=== PATIENT | male | born 1930 | race Asian ===

== ENCOUNTER → 2016-11-10 | Outpatient (CLI) | payer MEDICARE, OTHER ==
[~2016-11-10] MED LIST: ALBUTEROL IH; ASPI-556 PO; AUGMENTIN PO; BENZ-26 PO; FINA5TAB41 PO; LOSA25TA21 PO; METF850T2 PO; SYMB8060 IH; TAMS0.4C32 PO
== END | disposition home or self-care (01) ==
LOC: RADPV 13:55
PROVIDERS: ATTEND Internal Medicine
DX: I51.7 Cardiomegaly (principal)
CPT/HCPCS: 71020

== ENCOUNTER → 2017-07-26 | Outpatient (CLI) | payer MEDICARE, OTHER ==
[~2017-07-26] MED LIST changes: -BENZ-26 PO; +BENZ-51 PO; +LEVO250 PO; +PRED20 PO
== END | disposition home or self-care (01) ==
LOC: RADPV 10:54
PROVIDERS: ATTEND Internal Medicine
DX: I70.0 Atherosclerosis of aorta (principal)
CPT/HCPCS: 71020

== ENCOUNTER 2017-07-29 23:12 | Emergency (ER) | payer MEDICARE, OTHER ==
[~2017-07-29] VITALS: Ht 165.1 cm; Wt 79.5 kg
[~2017-07-29 23:12] MED LIST changes: -LEVO250 PO; -PRED20 PO
[2017-07-29] MEDS ORDERED: LEVO250 PO (23:28)
[2017-07-29] MEDS ORDERED: PRED20 PO (23:28)
[2017-07-29 23:38] LABS: GLUCOSE,POINT OF CARE 99 MG/DL (70-110)
[2017-07-30] LABS: BASOPHILS # (AUTO) 0.03 K/uL (0.00-0.20); BASOPHILS % (AUTO) 0.3 % (0.0-2.0); EOSINOPHILS % (AUTO) 0.04 % (1.0-6.0); HEMATOCRIT 41.5 % (41-53); HEMOGLOBIN 13.5 g/dL (13.5-17.5); LYMPHOCYTES # (AUTO) 1.5 K/uL (1.0-4.8); LYMPHOCYTES % (AUTO) 15.3 % (22.0-44.0); MEAN CORPUSCULAR HEMOGLOBIN 29.4 pg (26.0-34.0); MEAN CORPUSCULAR HGB CONC 32.6 G/dL (31.0-37.0); MEAN CORPUSCULAR VOLUME 90 fL (80-100); MONOCYTES # (AUTO) 0.7 K/uL (0.1-1.0); MONOCYTES % (AUTO) 7.2 % (2.0-9.0); NEUTROPHILS # (AUTO) 7.6 K/uL (1.8-7.7); NEUTROPHILS % (AUTO) 77.2 % (40.0-70.0); PLATELET COUNT (AUTO) 197 K/uL (150-450); RED BLOOD CELL COUNT(AUTO) 4.59 MIL/uL (4.50-5.90); RED CELL DISTRIBUTION WIDTH 13.1 % (11.5-14.5); WHITE BLOOD COUNT (AUTO) 9.8 K/uL (4.5-11.0)
[2017-07-30 00:11] LABS: ANION GAP 8 mmol/L (8-16); CALCIUM, TOTAL 9.6 mg/dL (8.8-10.5); CARBON DIOXIDE 28 mmol/L (22-29); CHLORIDE 100 mmol/L (98-107); CREATININE 1.04 mg/dL (0.60-1.30); GLOMERULAR FILTR. RATE CALC > 60 mL/min (>60); POTASSIUM 4.2 mmol/L (3.5-5.1); SODIUM SERUM 136 mmol/L (136-145); UREA NITROGEN, BLOOD 16 mg/dL (7-18)
[2017-07-30 00:17] LABS: ALANINE AMINOTRANSFERASE 33 U/L (12-78); ALBUMIN 4.1 g/dL (3.4-5.0); ASPARTATE AMINOTRANSFERASE 21 U/L (15-37); BILIRUBIN,TOTAL 0.5 mg/dL (0.1-1.0); TOTAL PROTEIN, SERUM 8.4 g/dL (6.4-8.2)
[2017-07-30] MEDS ORDERED: ALBUTEROL SULFATE 2.5 MG/0.5 ML NEB SOLUTION NEB ONE (01:45)
[2017-07-30] MEDS ORDERED: 0.9% SODIUM CHLORIDE 5 ML NEB SOLUTION NEB ONE (02:03)
[2017-07-30] MEDS ORDERED: ALBUTEROL SULFATE HFA 90 MCG/PUFF 8 GM INHALER IH ONE (03:00)
[2017-07-30 03:30] VITALS: BP 132/72
== END 2017-07-30 05:29 | disposition home or self-care (01) ==
LOC: EMS 23:14
DX: J45.909 Unspecified asthma, uncomplicated (principal); J18.9 Pneumonia, unspecified organism; E11.9 Type 2 diabetes mellitus without complications; E78.00 Pure hypercholesterolemia, unspecified; I10 Essential (primary) hypertension; Z79.82 Long term (current) use of aspirin
CPT/HCPCS: 82962; 94640; 99285; J3535

== ENCOUNTER 2018-06-08 12:45 | Inpatient (IN) | payer MEDICARE, OTHER ==
[~2018-06-08] VITALS: Ht 165.1 cm; Wt 58.5 kg
[~2018-06-08 12:45] MED LIST changes: +ALBU8HFA IH; -ALBUTEROL IH; +ATOR20TA86 PO; -AUGMENTIN PO; -BENZ-51 PO; +DOCU250C91 PO; +HEPA500041 SQ; -LOSA25TA21 PO; +METF-961 PO; -METF850T2 PO; -TAMS0.4C32 PO
[2018-06-08 13:50] VITALS: BP 174/79
[2018-06-08 15:30] VITALS: BP 139/57
[2018-06-08] MEDS ORDERED: ACETAMINOPHEN 325 MG TABLET PO PRN (16:45)
[2018-06-08] MEDS ORDERED: DOCUSATE SODIUM 283 MG/5 ML MINI-ENEMA PR PRN (16:45)
[2018-06-08] MEDS ORDERED: ACETAMINOPHEN 500 MG TABLET PO PRN (17:15)
[2018-06-08] MEDS ORDERED: INSULIN LISPRO 100 UNITS/ML SQ PRN (17:30)
[2018-06-08] MEDS ORDERED: DEXTROSE 50%-WATER 25 GM/50 ML SYRINGE IVP PRN (17:30)
[2018-06-08 19:35] LABS: APPEARANCE,URINE CLEAR (CLEAR); BILIRUBIN,URINE NEGATIVE (NEGATIVE); GLUCOSE, URINE (UA) NEGATIVE (NEGATIVE); KETONES,URINE NEGATIVE (NEGATIVE); LEUKOCYTE ESTERASE ,URINE NEGATIVE (NEGATIVE); NITRATE,URINE NEGATIVE (NEGATIVE); OCCULT BLOOD,URINE NEGATIVE (NEGATIVE); PROTEIN,URINE NEGATIVE (NEGATIVE); UROBILINOGEN,URINE 0.2 mg/dL (<=1.0)
[2018-06-08 20:49] VITALS: BP 158/76
[2018-06-08] MEDS ORDERED: DOCUSATE SODIUM 100 MG CAPSULE PO SCH (21:00)
[2018-06-08] MEDS: DOCUSATE SODIUM 250 MG CAPSULE PO SCH (21:20)
[2018-06-08] MEDS: SENNA 187 MG TABLET PO SCH (21:20)
[2018-06-08] MEDS: HEPARIN SODIUM,PORCINE 5,000 UNITS/ML VIAL SQ SCH (21:20)
[2018-06-08 21:48] VITALS: BP 160/80
[2018-06-08 22:59] LABS: GLUCOMETER DEV NAME(LOC) 2WR 1C; GLUCOSE,POINT OF CARE 131 MG/DL (70-110)
[2018-06-08 22:59] LABS: GLUCOMETER DEV NAME(LOC) 2WR 2E; GLUCOSE,POINT OF CARE 115 MG/DL (70-110)
[2018-06-08] MEDS: 0.9% SODIUM CHLORIDE 10 ML SYRINGE IVP SCH (23:32)
[2018-06-09 00:04] VITALS: BP 146/67
[2018-06-09 06:25] LABS: GLUCOMETER DEV NAME(LOC) 2WR 1C; GLUCOSE,POINT OF CARE 94 MG/DL (70-110)
[2018-06-09 07:12] LABS: BASOPHILS % (AUTO) 3.4 % (0.0-2.0); HEMATOCRIT 37.9 % (41-53); HEMOGLOBIN 12.8 g/dL (13.5-17.5); LYMPHOCYTES # (AUTO) 1.3 K/uL (1.0-4.8); LYMPHOCYTES % (AUTO) 24.8 % (22.0-44.0); MEAN CORPUSCULAR HEMOGLOBIN 29.8 pg (26.0-34.0); MEAN CORPUSCULAR HGB CONC 33.8 G/dL (31.0-37.0); MEAN CORPUSCULAR VOLUME 88 fL (80-100); MONOCYTES # (AUTO) 0.6 K/uL (0.1-1.0); MONOCYTES % (AUTO) 11.3 % (2.0-9.0); NEUTROPHILS # (AUTO) 2.9 K/uL (1.8-7.7); NEUTROPHILS % (AUTO) 56.5 % (40.0-70.0); PLATELET COUNT (AUTO) 133 K/uL (150-450); RED BLOOD CELL COUNT(AUTO) 4.29 MIL/uL (4.50-5.90); RED CELL DISTRIBUTION WIDTH 15.7 % (11.5-14.5)
[2018-06-09 07:30] LABS: ALANINE AMINOTRANSFERASE 36 U/L (12-78); ALBUMIN 3.5 g/dL (3.4-5.0); ALKALINE PHOSPHATASE 106 U/L (46-116); ANION GAP 7 mmol/L (8-16); ASPARTATE AMINOTRANSFERASE 44 U/L (15-37); BILIRUBIN,TOTAL 0.8 mg/dL (0.1-1.0); CARBON DIOXIDE 30 mmol/L (22-29); CHLORIDE 104 mmol/L (98-107); CHOL/HDL RATIO 2.3 (4.2-7.3); CHOLESTEROL 105 mg/dL (131-200); CREATININE 0.99 mg/dL (0.60-1.30); GLOMERULAR FILTR. RATE CALC > 60 mL/min (>60); GLUCOSE,RANDOM 159 mg/dL (70-110); HDL CHOLESTEROL 45 mg/dL (40-60); LDL CHOL (CALC.) 44 mg/dL (0-130); POTASSIUM 3.5 mmol/L (3.5-5.1); SODIUM SERUM 141 mmol/L (136-145); TRIGLYCERIDES 79 mg/dL (15-150); UREA NITROGEN, BLOOD 9 mg/dL (7-18)
[2018-06-09 07:31] LABS: % IRON SATURATION 40.6 % (30-44); IRON, SERUM 128 mcg/dL (50-175); TOTAL IRON BINDING CAPACITY 315 mcg/dL (250-450)
[2018-06-09 07:55] VITALS: BP 152/67
[2018-06-09] MEDS: 0.9% SODIUM CHLORIDE 10 ML SYRINGE IVP SCH ×2 (08:00→08:59)
[2018-06-09] MEDS: DOCUSATE SODIUM 250 MG CAPSULE PO SCH ×2 (08:57→20:44)
[2018-06-09] MEDS: ATORVASTATIN CALCIUM 20 MG TABLET PO SCH (08:57)
[2018-06-09] MEDS: RAMIPRIL 5 MG CAPSULE PO SCH (08:57)
[2018-06-09] MEDS: MetFORMIN HCL 850 MG TABLET PO SCH ×2 (08:57→17:41)
[2018-06-09] MEDS: HEPARIN SODIUM,PORCINE 5,000 UNITS/ML VIAL SQ SCH ×2 (08:57→20:45)
[2018-06-09] MEDS: FINASTERIDE 5 MG TABLET PO SCH (08:57)
[2018-06-09] MEDS: ASPIRIN 325 MG TABLET PO SCH (08:57)
[2018-06-09 12:42] VITALS: BP 133/61
[2018-06-09 16:37] VITALS: BP 126/61
[2018-06-09 16:42] LABS: GLUCOMETER DEV NAME(LOC) 2WR 2E; GLUCOSE,POINT OF CARE 92 MG/DL (70-110)
[2018-06-09] MEDS ORDERED: CYANOCOBALAMIN 1,000 MCG/ML VIAL IM ONE (16:45)
[2018-06-09] MEDS: SENNA 187 MG TABLET PO SCH (20:44)
[2018-06-10 00:26] VITALS: BP 141/71
[2018-06-10 06:28] LABS: GLUCOMETER DEV NAME(LOC) 2WR 1C; GLUCOSE,POINT OF CARE 96 MG/DL (70-110)
[2018-06-10 07:00] VITALS: BP 130/59
[2018-06-10] MEDS: DOCUSATE SODIUM 250 MG CAPSULE PO SCH ×2 (10:05→20:21)
[2018-06-10] MEDS: RAMIPRIL 5 MG CAPSULE PO SCH (10:05)
[2018-06-10] MEDS: ATORVASTATIN CALCIUM 20 MG TABLET PO SCH (10:05)
[2018-06-10] MEDS: ASPIRIN 325 MG TABLET PO SCH (10:05)
[2018-06-10] MEDS: FINASTERIDE 5 MG TABLET PO SCH (10:05)
[2018-06-10] MEDS: HEPARIN SODIUM,PORCINE 5,000 UNITS/ML VIAL SQ SCH ×2 (10:05→20:21)
[2018-06-10] MEDS: MetFORMIN HCL 850 MG TABLET PO SCH ×2 (10:05→18:59)
[2018-06-10 15:23] VITALS: BP 144/73
[2018-06-10 17:34] LABS: GLUCOMETER DEV NAME(LOC) 2WR 2E; GLUCOSE,POINT OF CARE 98 MG/DL (70-110)
[2018-06-10] MEDS: BRIMONIDINE TARTRATE 0.1% 5 ML OPHTHALMIC SOLUTION OU SCH (20:21)
[2018-06-10] MEDS: DORZOLAMIDE/TIMOLOL 2-0.5% [22.3-6.8MG/ML] 10 ML OPHTHALMIC SOLUTION OU SCH (20:21)
[2018-06-10] MEDS: SENNA 187 MG TABLET PO SCH (20:21)
[2018-06-11] VITALS: BP 144/63
[2018-06-11 05:53] LABS: GLUCOMETER DEV NAME(LOC) 2WR 2E; GLUCOSE,POINT OF CARE 97 MG/DL (70-110)
[2018-06-11 07:34] VITALS: BP 131/57
[2018-06-11] MEDS: DOCUSATE SODIUM 250 MG CAPSULE PO SCH ×2 (07:59→20:23)
[2018-06-11] MEDS: BRIMONIDINE TARTRATE 0.1% 5 ML OPHTHALMIC SOLUTION OU SCH ×2 (07:59→20:24)
[2018-06-11] MEDS: FINASTERIDE 5 MG TABLET PO SCH (07:59)
[2018-06-11] MEDS: ATORVASTATIN CALCIUM 20 MG TABLET PO SCH (07:59)
[2018-06-11] MEDS: MetFORMIN HCL 850 MG TABLET PO SCH ×2 (07:59→17:22)
[2018-06-11] MEDS: ASPIRIN 325 MG TABLET PO SCH (07:59)
[2018-06-11] MEDS: RAMIPRIL 5 MG CAPSULE PO SCH (07:59)
[2018-06-11] MEDS: DORZOLAMIDE/TIMOLOL 2-0.5% [22.3-6.8MG/ML] 10 ML OPHTHALMIC SOLUTION OU SCH ×2 (07:59→20:24)
[2018-06-11] MEDS: HEPARIN SODIUM,PORCINE 5,000 UNITS/ML VIAL SQ SCH ×2 (08:00→20:23)
[2018-06-11 16:21] VITALS: BP 143/70
[2018-06-11 17:48] LABS: GLUCOMETER DEV NAME(LOC) 2WR 1C; GLUCOSE,POINT OF CARE 85 MG/DL (70-110)
[2018-06-11] MEDS: SENNA 187 MG TABLET PO SCH (20:23)
[2018-06-12] VITALS: BP 144/73
[2018-06-12 06:13] LABS: GLUCOMETER DEV NAME(LOC) 2WR 1C; GLUCOSE,POINT OF CARE 78 MG/DL (70-110)
[2018-06-12 08:00] VITALS: BP 143/61
[2018-06-12] MEDS: RAMIPRIL 5 MG CAPSULE PO SCH (08:02)
[2018-06-12] MEDS: DOCUSATE SODIUM 250 MG CAPSULE PO SCH ×2 (08:03→20:37)
[2018-06-12] MEDS: BRIMONIDINE TARTRATE 0.1% 5 ML OPHTHALMIC SOLUTION OU SCH ×2 (08:03→20:37)
[2018-06-12] MEDS: ASPIRIN 325 MG TABLET PO SCH (08:03)
[2018-06-12] MEDS: FINASTERIDE 5 MG TABLET PO SCH (08:03)
[2018-06-12] MEDS: MetFORMIN HCL 850 MG TABLET PO SCH ×2 (08:03→17:05)
[2018-06-12] MEDS: ATORVASTATIN CALCIUM 20 MG TABLET PO SCH (08:03)
[2018-06-12] MEDS: DORZOLAMIDE/TIMOLOL 2-0.5% [22.3-6.8MG/ML] 10 ML OPHTHALMIC SOLUTION OU SCH ×2 (08:03→20:37)
[2018-06-12] MEDS: HEPARIN SODIUM,PORCINE 5,000 UNITS/ML VIAL SQ SCH ×2 (08:03→20:37)
[2018-06-12 16:00] VITALS: BP 140/70
[2018-06-12] MEDS: SENNA 187 MG TABLET PO SCH (20:37)
[2018-06-12 20:53] LABS: GLUCOMETER DEV NAME(LOC) 2WR 1C; GLUCOSE,POINT OF CARE 107 MG/DL (70-110)
[2018-06-13 01:42] VITALS: BP 150/66
[2018-06-13 06:53] LABS: GLUCOMETER DEV NAME(LOC) 2WR 1C; GLUCOSE,POINT OF CARE 76 MG/DL (70-110)
[2018-06-13 08:00] VITALS: BP 147/64
[2018-06-13] MEDS: HEPARIN SODIUM,PORCINE 5,000 UNITS/ML VIAL SQ SCH ×2 (09:36→21:15)
[2018-06-13] MEDS: MetFORMIN HCL 850 MG TABLET PO SCH ×2 (09:36→16:32)
[2018-06-13] MEDS: ATORVASTATIN CALCIUM 20 MG TABLET PO SCH (09:36)
[2018-06-13] MEDS: BRIMONIDINE TARTRATE 0.1% 5 ML OPHTHALMIC SOLUTION OU SCH ×2 (09:37→21:14)
[2018-06-13] MEDS: DOCUSATE SODIUM 250 MG CAPSULE PO SCH ×2 (09:37→21:14)
[2018-06-13] MEDS: ASPIRIN 325 MG TABLET PO SCH (09:37)
[2018-06-13] MEDS: FINASTERIDE 5 MG TABLET PO SCH (09:37)
[2018-06-13] MEDS: DORZOLAMIDE/TIMOLOL 2-0.5% [22.3-6.8MG/ML] 10 ML OPHTHALMIC SOLUTION OU SCH ×2 (09:37→21:14)
[2018-06-13] MEDS: RAMIPRIL 5 MG CAPSULE PO SCH (09:37)
[2018-06-13 16:00] VITALS: BP 128/69
[2018-06-13] MEDS: SENNA 187 MG TABLET PO SCH (21:14)
[2018-06-13 22:23] LABS: GLUCOMETER DEV NAME(LOC) 2WR 1C; GLUCOSE,POINT OF CARE 100 MG/DL (70-110)
[2018-06-13] MEDS ORDERED: METF-445 PO (22:34)
[2018-06-13] MEDS ORDERED: COSO10OS OU (22:34)
[2018-06-13] MEDS ORDERED: BRIM15OS OU (22:34)
[2018-06-13] MEDS ORDERED: RAMI5CAP67 PO (22:34)
[2018-06-14 02:00] VITALS: BP 146/65
[2018-06-14 06:33] LABS: GLUCOMETER DEV NAME(LOC) 2WR 1C; GLUCOSE,POINT OF CARE 98 MG/DL (70-110)
[2018-06-14 08:19] VITALS: BP 155/63
[2018-06-14] MEDS: ATORVASTATIN CALCIUM 20 MG TABLET PO SCH (08:23)
[2018-06-14] MEDS: RAMIPRIL 5 MG CAPSULE PO SCH (08:24)
[2018-06-14] MEDS: ASPIRIN 325 MG TABLET PO SCH (08:24)
[2018-06-14] MEDS: MetFORMIN HCL 850 MG TABLET PO SCH ×2 (08:24→17:21)
[2018-06-14] MEDS: FINASTERIDE 5 MG TABLET PO SCH (08:24)
[2018-06-14] MEDS: HEPARIN SODIUM,PORCINE 5,000 UNITS/ML VIAL SQ SCH ×2 (08:25→21:19)
[2018-06-14] MEDS: DOCUSATE SODIUM 250 MG CAPSULE PO SCH ×2 (08:25→21:19)
[2018-06-14] MEDS: DORZOLAMIDE/TIMOLOL 2-0.5% [22.3-6.8MG/ML] 10 ML OPHTHALMIC SOLUTION OU SCH ×2 (08:25→21:20)
[2018-06-14] MEDS: BRIMONIDINE TARTRATE 0.1% 5 ML OPHTHALMIC SOLUTION OU SCH ×2 (08:26→21:20)
[2018-06-14 16:05] VITALS: BP 133/66
[2018-06-14] MEDS: SENNA 187 MG TABLET PO SCH (21:19)
[2018-06-15 01:00] VITALS: BP 121/58
[2018-06-15 06:18] LABS: GLUCOMETER DEV NAME(LOC) 2WR 1C; GLUCOSE,POINT OF CARE 85 MG/DL (70-110)
[2018-06-15 07:17] VITALS: BP 138/64
[2018-06-15] MEDS: MetFORMIN HCL 850 MG TABLET PO SCH ×2 (08:37→17:21)
[2018-06-15] MEDS: HEPARIN SODIUM,PORCINE 5,000 UNITS/ML VIAL SQ SCH ×2 (08:37→20:30)
[2018-06-15] MEDS: RAMIPRIL 5 MG CAPSULE PO SCH (08:38)
[2018-06-15] MEDS: FINASTERIDE 5 MG TABLET PO SCH (08:38)
[2018-06-15] MEDS: ATORVASTATIN CALCIUM 20 MG TABLET PO SCH (08:38)
[2018-06-15] MEDS: DOCUSATE SODIUM 250 MG CAPSULE PO SCH ×2 (08:38→20:29)
[2018-06-15] MEDS: ASPIRIN 325 MG TABLET PO SCH (08:38)
[2018-06-15] MEDS: BRIMONIDINE TARTRATE 0.1% 5 ML OPHTHALMIC SOLUTION OU SCH ×2 (08:39→20:29)
[2018-06-15] MEDS: DORZOLAMIDE/TIMOLOL 2-0.5% [22.3-6.8MG/ML] 10 ML OPHTHALMIC SOLUTION OU SCH ×2 (08:39→20:29)
[2018-06-15] MEDS ORDERED: *NON-FORMULARY MED [ENTER DRUG, DOSE, FREQ IN COMMENTS] CLINICAL ONE (13:45)
[2018-06-15 16:01] VITALS: BP 126/70
[2018-06-15] MEDS: FLUTICASONE/SALMETEROL 250 MCG-50 MCG/INH DISKUS INHALER [28] IH SCH (20:29)
[2018-06-15] MEDS: SENNA 187 MG TABLET PO SCH (20:29)
[2018-06-16 01:45] VITALS: BP 148/72
[2018-06-16 06:38] LABS: GLUCOMETER DEV NAME(LOC) 2WR 1C; GLUCOSE,POINT OF CARE 87 MG/DL (70-110)
[2018-06-16 08:01] VITALS: BP 152/69
[2018-06-16] MEDS: FINASTERIDE 5 MG TABLET PO SCH (08:23)
[2018-06-16] MEDS: MetFORMIN HCL 850 MG TABLET PO SCH ×2 (08:23→17:48)
[2018-06-16] MEDS: RAMIPRIL 5 MG CAPSULE PO SCH (08:24)
[2018-06-16] MEDS: DOCUSATE SODIUM 250 MG CAPSULE PO SCH ×2 (08:24→20:19)
[2018-06-16] MEDS: ASPIRIN 325 MG TABLET PO SCH (08:24)
[2018-06-16] MEDS: HEPARIN SODIUM,PORCINE 5,000 UNITS/ML VIAL SQ SCH ×2 (08:24→20:19)
[2018-06-16] MEDS: ATORVASTATIN CALCIUM 20 MG TABLET PO SCH (08:24)
[2018-06-16] MEDS: FLUTICASONE/SALMETEROL 250 MCG-50 MCG/INH DISKUS INHALER [28] IH SCH ×2 (08:25→20:20)
[2018-06-16] MEDS: BRIMONIDINE TARTRATE 0.1% 5 ML OPHTHALMIC SOLUTION OU SCH ×2 (08:25→20:20)
[2018-06-16] MEDS: DORZOLAMIDE/TIMOLOL 2-0.5% [22.3-6.8MG/ML] 10 ML OPHTHALMIC SOLUTION OU SCH ×2 (08:25→20:20)
[2018-06-16] MEDS: INCRUSE ELLIPTA 62.5MCG IH SCH (13:08)
[2018-06-16 17:41] VITALS: BP 121/59
[2018-06-16] MEDS: SENNA 187 MG TABLET PO SCH (20:19)
[2018-06-17 02:00] VITALS: BP 142/70
[2018-06-17] MEDS ORDERED: ADV250 IH (04:02)
[2018-06-17] MEDS ORDERED: ASPI-1213 PO (04:04)
[2018-06-17] MEDS ORDERED: ASPI-891 PO (04:10)
[2018-06-17 06:38] LABS: GLUCOMETER DEV NAME(LOC) 2WR 1C; GLUCOSE,POINT OF CARE 77 MG/DL (70-110)
[2018-06-17 07:58] VITALS: BP 131/71
[2018-06-17] MEDS: FINASTERIDE 5 MG TABLET PO SCH (08:25)
[2018-06-17] MEDS: DOCUSATE SODIUM 250 MG CAPSULE PO SCH (08:25)
[2018-06-17] MEDS: BRIMONIDINE TARTRATE 0.1% 5 ML OPHTHALMIC SOLUTION OU SCH ×2 (08:25→20:26)
[2018-06-17] MEDS: FLUTICASONE/SALMETEROL 250 MCG-50 MCG/INH DISKUS INHALER [28] IH SCH ×2 (08:25→20:26)
[2018-06-17] MEDS: ASPIRIN 325 MG TABLET PO SCH (08:25)
[2018-06-17] MEDS: ATORVASTATIN CALCIUM 20 MG TABLET PO SCH (08:25)
[2018-06-17] MEDS: MetFORMIN HCL 850 MG TABLET PO SCH ×2 (08:25→17:38)
[2018-06-17] MEDS: DORZOLAMIDE/TIMOLOL 2-0.5% [22.3-6.8MG/ML] 10 ML OPHTHALMIC SOLUTION OU SCH ×2 (08:25→20:26)
[2018-06-17] MEDS: HEPARIN SODIUM,PORCINE 5,000 UNITS/ML VIAL SQ SCH ×2 (08:26→20:25)
[2018-06-17] MEDS: RAMIPRIL 5 MG CAPSULE PO SCH (08:27)
[2018-06-17] MEDS: INCRUSE ELLIPTA 62.5MCG IH SCH (13:07)
[2018-06-17 16:01] VITALS: BP 135/60
[2018-06-17] MEDS: SENNA 187 MG TABLET PO SCH (20:25)
[2018-06-18 00:01] VITALS: BP 144/66
[2018-06-18 06:28] LABS: GLUCOMETER DEV NAME(LOC) 2WR 1C; GLUCOSE,POINT OF CARE 80 MG/DL (70-110)
[2018-06-18] MEDS: DOCUSATE SODIUM 250 MG CAPSULE PO SCH (08:27)
[2018-06-18] MEDS: ASPIRIN 325 MG TABLET PO SCH (08:27)
[2018-06-18] MEDS: FINASTERIDE 5 MG TABLET PO SCH (08:27)
[2018-06-18] MEDS: BRIMONIDINE TARTRATE 0.1% 5 ML OPHTHALMIC SOLUTION OU SCH ×2 (08:28→20:25)
[2018-06-18] MEDS: FLUTICASONE/SALMETEROL 250 MCG-50 MCG/INH DISKUS INHALER [28] IH SCH ×2 (08:28→20:24)
[2018-06-18] MEDS: HEPARIN SODIUM,PORCINE 5,000 UNITS/ML VIAL SQ SCH ×2 (08:28→20:27)
[2018-06-18] MEDS: ATORVASTATIN CALCIUM 20 MG TABLET PO SCH (08:28)
[2018-06-18] MEDS: DORZOLAMIDE/TIMOLOL 2-0.5% [22.3-6.8MG/ML] 10 ML OPHTHALMIC SOLUTION OU SCH ×2 (08:28→20:25)
[2018-06-18] MEDS: MetFORMIN HCL 850 MG TABLET PO SCH ×2 (08:29→17:45)
[2018-06-18] MEDS: RAMIPRIL 5 MG CAPSULE PO SCH (09:00)
[2018-06-18 09:36] VITALS: BP 140/57
[2018-06-18] MEDS: INCRUSE ELLIPTA 62.5MCG IH SCH (15:34)
[2018-06-18 16:00] VITALS: BP 145/61
[2018-06-18] MEDS: SENNA 187 MG TABLET PO SCH (20:27)
[2018-06-19 01:32] VITALS: BP 133/59
[2018-06-19 06:18] LABS: GLUCOMETER DEV NAME(LOC) 2WR 1C; GLUCOSE,POINT OF CARE 96 MG/DL (70-110)
[2018-06-19 07:20] VITALS: BP 122/59
[2018-06-19] MEDS: ASPIRIN 325 MG TABLET PO SCH (07:52)
[2018-06-19] MEDS: MetFORMIN HCL 850 MG TABLET PO SCH ×2 (07:52→17:41)
[2018-06-19] MEDS: FINASTERIDE 5 MG TABLET PO SCH (07:52)
[2018-06-19] MEDS: RAMIPRIL 5 MG CAPSULE PO SCH (07:52)
[2018-06-19] MEDS: DOCUSATE SODIUM 250 MG CAPSULE PO SCH (07:52)
[2018-06-19] MEDS: ATORVASTATIN CALCIUM 20 MG TABLET PO SCH (07:52)
[2018-06-19] MEDS: DORZOLAMIDE/TIMOLOL 2-0.5% [22.3-6.8MG/ML] 10 ML OPHTHALMIC SOLUTION OU SCH ×2 (07:53→20:42)
[2018-06-19] MEDS: FLUTICASONE/SALMETEROL 250 MCG-50 MCG/INH DISKUS INHALER [28] IH SCH ×2 (07:53→20:41)
[2018-06-19] MEDS: HEPARIN SODIUM,PORCINE 5,000 UNITS/ML VIAL SQ SCH ×2 (07:53→20:45)
[2018-06-19] MEDS: BRIMONIDINE TARTRATE 0.1% 5 ML OPHTHALMIC SOLUTION OU SCH ×2 (07:53→20:41)
[2018-06-19] MEDS: INCRUSE ELLIPTA 62.5MCG IH SCH (12:33)
[2018-06-19 15:29] VITALS: BP 131/63
[2018-06-19] MEDS: SENNA 187 MG TABLET PO SCH (20:42)
[2018-06-20 01:00] VITALS: BP 150/69
[2018-06-20 05:58] LABS: GLUCOMETER DEV NAME(LOC) 2WR 2E; GLUCOSE,POINT OF CARE 88 MG/DL (70-110)
[2018-06-20 08:00] VITALS: BP 144/65
[2018-06-20] MEDS: ATORVASTATIN CALCIUM 20 MG TABLET PO SCH (08:04)
[2018-06-20] MEDS: ASPIRIN 325 MG TABLET PO SCH (08:04)
[2018-06-20] MEDS: RAMIPRIL 5 MG CAPSULE PO SCH (08:04)
[2018-06-20] MEDS: DOCUSATE SODIUM 250 MG CAPSULE PO SCH (08:04)
[2018-06-20] MEDS: FINASTERIDE 5 MG TABLET PO SCH (08:04)
[2018-06-20] MEDS: DORZOLAMIDE/TIMOLOL 2-0.5% [22.3-6.8MG/ML] 10 ML OPHTHALMIC SOLUTION OU SCH ×2 (08:05→21:10)
[2018-06-20] MEDS: FLUTICASONE/SALMETEROL 250 MCG-50 MCG/INH DISKUS INHALER [28] IH SCH ×2 (08:05→21:10)
[2018-06-20] MEDS: BRIMONIDINE TARTRATE 0.1% 5 ML OPHTHALMIC SOLUTION OU SCH ×2 (08:05→21:10)
[2018-06-20] MEDS: MetFORMIN HCL 850 MG TABLET PO SCH ×2 (08:06→17:31)
[2018-06-20] MEDS: HEPARIN SODIUM,PORCINE 5,000 UNITS/ML VIAL SQ SCH ×2 (08:06→21:09)
[2018-06-20] MEDS: INCRUSE ELLIPTA 62.5MCG IH SCH (14:22)
[2018-06-20 15:30] VITALS: BP 135/54
[2018-06-20] MEDS ORDERED: SODIUM CHLORIDE 0.9% 100 ML ONE (20:35)
[2018-06-20] MEDS: SENNA 187 MG TABLET PO SCH (21:09)
[2018-06-20] MEDS ORDERED: UMEC62.5 IH (22:35)
[2018-06-21 01:00] VITALS: BP 140/68
[2018-06-21 06:49] LABS: GLUCOMETER DEV NAME(LOC) 2WR 2E; GLUCOSE,POINT OF CARE 92 MG/DL (70-110)
[2018-06-21 07:45] VITALS: BP 141/63
[2018-06-21] MEDS: ASPIRIN 325 MG TABLET PO SCH (09:23)
[2018-06-21] MEDS: HEPARIN SODIUM,PORCINE 5,000 UNITS/ML VIAL SQ SCH (09:23)
[2018-06-21] MEDS: ATORVASTATIN CALCIUM 20 MG TABLET PO SCH (09:23)
[2018-06-21] MEDS: FINASTERIDE 5 MG TABLET PO SCH (09:23)
[2018-06-21] MEDS: DOCUSATE SODIUM 250 MG CAPSULE PO SCH (09:24)
[2018-06-21] MEDS: RAMIPRIL 5 MG CAPSULE PO SCH (09:24)
[2018-06-21] MEDS: MetFORMIN HCL 850 MG TABLET PO SCH (09:24)
[2018-06-21] MEDS: BRIMONIDINE TARTRATE 0.1% 5 ML OPHTHALMIC SOLUTION OU SCH (09:24)
[2018-06-21] MEDS: FLUTICASONE/SALMETEROL 250 MCG-50 MCG/INH DISKUS INHALER [28] IH SCH (09:25)
[2018-06-21] MEDS: DORZOLAMIDE/TIMOLOL 2-0.5% [22.3-6.8MG/ML] 10 ML OPHTHALMIC SOLUTION OU SCH (09:25)
== END 2018-06-21 11:30 | disposition home health service (06) | DRG 65 ==
LOC: 2WR 12:45
PROVIDERS: ADMIT Physical Medicine & Rehabilitation; ATTEND Physical Medicine & Rehabilitation
DX: I63.9 Cerebral infarction, unspecified (principal); I69.354 Hemiplegia and hemiparesis following cerebral infarction affecting left non-dominant side; D64.9 Anemia, unspecified; E11.9 Type 2 diabetes mellitus without complications; H40.9 Unspecified glaucoma; E78.5 Hyperlipidemia, unspecified; I10 Essential (primary) hypertension; K59.00 Constipation, unspecified; N31.9 Neuromuscular dysfunction of bladder, unspecified; N40.0 Benign prostatic hyperplasia without lower urinary tract symptoms; Z82.49 Family history of ischemic heart disease and other diseases of the circulatory system; Z83.3 Family history of diabetes mellitus; Z80.6 Family history of leukemia; Z79.899 Other long term (current) drug therapy
CPT/HCPCS: 82607; 82746; 83036; 83540; 83550; 85045; 86340; 87081; 97110; 97112; 97116; 97150; 97162; 97167; 97530; 97535; 99366; J1644; J3420; J3535; J7050

== ENCOUNTER 2018-08-23 13:49 | Inpatient (IN) | payer MEDICARE, OTHER ==
[~2018-08-23] VITALS: Ht 165.1 cm; Wt 62.0 kg
[~2018-08-23 13:49] MED LIST changes: +ADV250 IH; -ALBU8HFA IH; -ASPI-556 PO; +ASPI-891 PO; +BRIM15OS OU; +COSO10OS OU; -HEPA500041 SQ; +METF-445 PO; -METF-961 PO; +RAMI5CAP67 PO; -SYMB8060 IH; +UMEC62.5 IH
[2018-08-23 14:15] LABS: GLUCOSE,POINT OF CARE 86 MG/DL (70-110)
[2018-08-23 14:55] LABS: BASOPHILS % (AUTO) 1.1 % (0.0-2.0); EOSINOPHILS % (AUTO) 1.7 % (1.0-6.0); HEMATOCRIT 40.8 % (41-53); HEMOGLOBIN 13.2 g/dL (13.5-17.5); LYMPHOCYTES # (AUTO) 1.1 K/uL (1.0-4.8); LYMPHOCYTES % (AUTO) 8.8 % (22.0-44.0); MEAN CORPUSCULAR HEMOGLOBIN 29.2 pg (26.0-34.0); MEAN CORPUSCULAR HGB CONC 32.4 G/dL (31.0-37.0); MEAN CORPUSCULAR VOLUME 90 fL (80-100); MONOCYTES % (AUTO) 7.5 % (2.0-9.0); NEUTROPHILS # (AUTO) 10.4 K/uL (1.8-7.7); NEUTROPHILS % (AUTO) 80.9 % (40.0-70.0); PLATELET COUNT (AUTO) 190 K/uL (150-450); RED BLOOD CELL COUNT(AUTO) 4.54 MIL/uL (4.50-5.90); RED CELL DISTRIBUTION WIDTH 14.7 % (11.5-14.5)
[2018-08-23 15:12] LABS: ALANINE AMINOTRANSFERASE 21 U/L (12-78); ALBUMIN 3.9 g/dL (3.4-5.0); ALKALINE PHOSPHATASE 84 U/L (46-116); ANION GAP 10 mmol/L (8-16); ASPARTATE AMINOTRANSFERASE 14 U/L (15-37); BILIRUBIN,TOTAL 0.6 mg/dL (0.1-1.0); CALCIUM, TOTAL 9.4 mg/dL (8.8-10.5); CARBON DIOXIDE 27 mmol/L (22-29); CHLORIDE 100 mmol/L (98-107); CREATININE 0.83 mg/dL (0.60-1.30); GLUCOSE,RANDOM 102 mg/dL (70-110); LIPASE 166 U/L (73-393); POTASSIUM 4.3 mmol/L (3.5-5.1); SODIUM SERUM 137 mmol/L (136-145); TOTAL PROTEIN, SERUM 7.6 g/dL (6.4-8.2); UREA NITROGEN, BLOOD 17 mg/dL (7-18)
[2018-08-23 15:13] LABS: GLOMERULAR FILTR. RATE CALC > 60 mL/min (>60)
[2018-08-23] MEDS ORDERED: SODIUM CHLORIDE 0.9% 100 ML ONE (19:26)
[2018-08-23] MEDS ORDERED: IOVERSOL 320 MG/ML 100 ML VIAL ONE (19:26)
[2018-08-23 21:14] LABS: APPEARANCE,URINE CLEAR (CLEAR); BILIRUBIN,URINE NEGATIVE (NEGATIVE); GLUCOSE, URINE (UA) NEGATIVE (NEGATIVE); KETONES,URINE NEGATIVE (NEGATIVE); LEUKOCYTE ESTERASE ,URINE NEGATIVE (NEGATIVE); NITRATE,URINE NEGATIVE (NEGATIVE); OCCULT BLOOD,URINE NEGATIVE (NEGATIVE); PROTEIN,URINE NEGATIVE (NEGATIVE)
[2018-08-23] MEDS ORDERED: PANTOPRAZOLE SODIUM 40 MG/VIAL IVP ONE (21:15)
[2018-08-23] MEDS ORDERED: ONDANSETRON HCL 4 MG/2 ML VIAL IVP PRN (21:30)
[2018-08-23] MEDS ORDERED: 0.9% SODIUM CHLORIDE 10 ML SYRINGE IVP PRN (21:30)
[2018-08-23] MEDS ORDERED: ACETAMINOPHEN 325 MG TABLET PO PRN (21:30)
[2018-08-23] MEDS: PANTOPRAZOLE SODIUM 80 MG in SODIUM CHLORIDE 0.9% 100 ML IV SCH (21:35)
[2018-08-23] MEDS ORDERED: ADV250 IH (21:50)
[2018-08-24] VITALS (7 sets, daily range): BP systolic 133–166; BP diastolic 63–89
[2018-08-24 06:39] LABS: EOSINOPHILS % (AUTO) 2.5 % (1.0-6.0); HEMATOCRIT 34.9 % (41-53); HEMOGLOBIN 11.6 g/dL (13.5-17.5); LYMPHOCYTES # (AUTO) 1.7 K/uL (1.0-4.8); LYMPHOCYTES % (AUTO) 22.3 % (22.0-44.0); MEAN CORPUSCULAR HEMOGLOBIN 29.8 pg (26.0-34.0); MEAN CORPUSCULAR HGB CONC 33.4 G/dL (31.0-37.0); MEAN CORPUSCULAR VOLUME 89 fL (80-100); MONOCYTES # (AUTO) 0.8 K/uL (0.1-1.0); MONOCYTES % (AUTO) 10.2 % (2.0-9.0); NEUTROPHILS # (AUTO) 4.8 K/uL (1.8-7.7); PLATELET COUNT (AUTO) 163 K/uL (150-450); RED BLOOD CELL COUNT(AUTO) 3.91 MIL/uL (4.50-5.90); RED CELL DISTRIBUTION WIDTH 14.4 % (11.5-14.5)
[2018-08-24 07:08] LABS: ALANINE AMINOTRANSFERASE 17 U/L (12-78); ALBUMIN 3.2 g/dL (3.4-5.0); ALKALINE PHOSPHATASE 67 U/L (46-116); ANION GAP 7 mmol/L (8-16); ASPARTATE AMINOTRANSFERASE 15 U/L (15-37); BILIRUBIN,TOTAL 0.8 mg/dL (0.1-1.0); CALCIUM, TOTAL 8.8 mg/dL (8.8-10.5); CARBON DIOXIDE 29 mmol/L (22-29); CHLORIDE 105 mmol/L (98-107); CREATININE 0.82 mg/dL (0.60-1.30); GLUCOSE,RANDOM 86 mg/dL (70-110); POTASSIUM 3.8 mmol/L (3.5-5.1); SODIUM SERUM 141 mmol/L (136-145); TOTAL PROTEIN, SERUM 6.1 g/dL (6.4-8.2); UREA NITROGEN, BLOOD 16 mg/dL (7-18)
[2018-08-24 07:09] LABS: GLOMERULAR FILTR. RATE CALC > 60 mL/min (>60)
[2018-08-24] MEDS: PANTOPRAZOLE SODIUM 80 MG in SODIUM CHLORIDE 0.9% 100 ML IV SCH ×2 (08:24→19:04)
[2018-08-24 09:04] LABS: GLUCOMETER DEV NAME(LOC) 5S.1; GLUCOSE,POINT OF CARE 79 MG/DL (70-110)
[2018-08-24] MEDS ORDERED: BISACODYL 10 MG RECTAL RECTAL SUPPOSITORY PR PRN (10:30)
[2018-08-24] MEDS: DEXTROSE 5%-0.45% SODIUM CHL 1,000 ML IV SCH ×2 (10:58→23:09)
[2018-08-24] MEDS ORDERED: SODIUM CHLORIDE 0.9% 1,000 ML IV ONE ×2 (12:09→13:00)
[2018-08-24 12:46] LABS: GLUCOMETER DEV NAME(LOC) 5S.2; GLUCOSE,POINT OF CARE 77 MG/DL (70-110)
[2018-08-24] MEDS: POLYETHYLENE GLYCOL 3350 17 GM PACKET PO SCH ×2 (15:35→21:02)
[2018-08-25] VITALS (12 sets, daily range): BP systolic 127–166; BP diastolic 60–85
[2018-08-25] MEDS: PANTOPRAZOLE SODIUM 80 MG in SODIUM CHLORIDE 0.9% 100 ML IV SCH (04:34)
[2018-08-25] MEDS ORDERED: 0.9% SODIUM CHLORIDE 10 ML SYRINGE IVP PRN (08:30)
[2018-08-25] MEDS ORDERED: IPRATROPIUM BROMIDE 0.5 MG/2.5 ML NEB SOLUTION NEB PRN (08:30)
[2018-08-25] MEDS ORDERED: ONDANSETRON HCL 4 MG/2 ML VIAL IVP PRN (08:30)
[2018-08-25] MEDS ORDERED: ACETAMINOPHEN 325 MG TABLET PO PRN (08:30)
[2018-08-25] MEDS ORDERED: ALBUTEROL SULFATE 2.5 MG/0.5 ML NEB SOLUTION NEB PRN (08:30)
[2018-08-25] MEDS ORDERED: LACTULOSE 20 GM/30 ML SOLUTION UDCUP PO ONE (08:30)
[2018-08-25] MEDS ORDERED: ZOLPIDEM TARTRATE 5 MG TABLET PO PRN (08:30)
[2018-08-25] MEDS: POLYETHYLENE GLYCOL 3350 17 GM PACKET PO SCH (08:58)
[2018-08-25 09:00] LABS: EOSINOPHILS % (AUTO) 3.4 % (1.0-6.0); HEMATOCRIT 37.9 % (41-53); HEMOGLOBIN 12.6 g/dL (13.5-17.5); LYMPHOCYTES # (AUTO) 1.7 K/uL (1.0-4.8); LYMPHOCYTES % (AUTO) 20.2 % (22.0-44.0); MEAN CORPUSCULAR HEMOGLOBIN 29.8 pg (26.0-34.0); MEAN CORPUSCULAR HGB CONC 33.3 G/dL (31.0-37.0); MEAN CORPUSCULAR VOLUME 89 fL (80-100); MONOCYTES # (AUTO) 0.8 K/uL (0.1-1.0); MONOCYTES % (AUTO) 9.6 % (2.0-9.0); NEUTROPHILS # (AUTO) 5.6 K/uL (1.8-7.7); NEUTROPHILS % (AUTO) 65.8 % (40.0-70.0); PLATELET COUNT (AUTO) 165 K/uL (150-450); RED BLOOD CELL COUNT(AUTO) 4.24 MIL/uL (4.50-5.90); RED CELL DISTRIBUTION WIDTH 14.3 % (11.5-14.5)
[2018-08-25] MEDS: DOCUSATE SODIUM 250 MG CAPSULE PO SCH ×3 (09:00→20:34)
[2018-08-25 09:08] LABS: ANION GAP 10 mmol/L (8-16); CALCIUM, TOTAL 9.2 mg/dL (8.8-10.5); CARBON DIOXIDE 27 mmol/L (22-29); CHLORIDE 104 mmol/L (98-107); CREATININE 0.81 mg/dL (0.60-1.30); GLOMERULAR FILTR. RATE CALC > 60 mL/min (>60); GLUCOSE,RANDOM 105 mg/dL (70-110); POTASSIUM 3.8 mmol/L (3.5-5.1); SODIUM SERUM 141 mmol/L (136-145); UREA NITROGEN, BLOOD 11 mg/dL (7-18)
[2018-08-25 09:14] LABS: ALANINE AMINOTRANSFERASE 16 U/L (12-78); ALBUMIN 3.5 g/dL (3.4-5.0); ALKALINE PHOSPHATASE 81 U/L (46-116); ASPARTATE AMINOTRANSFERASE 16 U/L (15-37); TOTAL PROTEIN, SERUM 6.9 g/dL (6.4-8.2)
[2018-08-25 09:22] LABS: % IRON SATURATION 27.7 % (30-44); IRON, SERUM 94 mcg/dL (50-175); TOTAL IRON BINDING CAPACITY 339 mcg/dL (250-450)
[2018-08-25] MEDS: ATORVASTATIN CALCIUM 20 MG TABLET PO SCH (09:59)
[2018-08-25] MEDS: DORZOLAMIDE/TIMOLOL 2-0.5% [22.3-6.8MG/ML] 10 ML OPHTHALMIC SOLUTION OU SCH ×2 (09:59→20:36)
[2018-08-25] MEDS: FLUTICASONE/VILANTEROL 100-25 MCG/INH INHALER [14] IH SCH (09:59)
[2018-08-25] MEDS: BRIMONIDINE TARTRATE 0.1% 5 ML OPHTHALMIC SOLUTION OU SCH ×2 (09:59→20:36)
[2018-08-25] MEDS: RAMIPRIL 5 MG CAPSULE PO SCH (09:59)
[2018-08-25] MEDS: PANTOPRAZOLE SODIUM 40 MG/VIAL IVP SCH (09:59)
[2018-08-25] MEDS: FINASTERIDE 5 MG TABLET PO SCH (09:59)
[2018-08-25] MEDS ORDERED: SOD FERRIC GLUC COMPLX/SUCROSE 125 MG in SODIUM CHLORIDE 0.9% 100 ML IV ONE (10:00)
[2018-08-25] MEDS ORDERED: MAGNESIUM OXIDE 400 MG TABLET PO PRN (16:30)
[2018-08-25] MEDS ORDERED: MAGNESIUM SULFATE 2 GM/WATER 50 ML IV PRN (16:30)
[2018-08-25] MEDS ORDERED: POTASSIUM CHL 10 MEQ/WATER 50 ML IV PRN (16:30)
[2018-08-25] MEDS ORDERED: POTASSIUM CHLORIDE 20 MEQ ER TABLET PO PRN (16:30)
[2018-08-25] MEDS ORDERED: MAGNESIUM SULFATE 4 GM/WATER 100 ML IV PRN (16:30)
[2018-08-25] MEDS ORDERED: DEXTROSE 5%-0.9% SODIUM CHL 1,000 ML IV ONE ×2 (16:30→16:48)
[2018-08-25 17:05] LABS: BASOPHILS % (AUTO) 1.2 % (0.0-2.0); EOSINOPHILS % (AUTO) 4.5 % (1.0-6.0); HEMATOCRIT 37.2 % (41-53); HEMOGLOBIN 12.2 g/dL (13.5-17.5); LYMPHOCYTES # (AUTO) 1.3 K/uL (1.0-4.8); LYMPHOCYTES % (AUTO) 18.1 % (22.0-44.0); MEAN CORPUSCULAR HEMOGLOBIN 29.4 pg (26.0-34.0); MEAN CORPUSCULAR HGB CONC 32.9 G/dL (31.0-37.0); MEAN CORPUSCULAR VOLUME 90 fL (80-100); MONOCYTES # (AUTO) 0.7 K/uL (0.1-1.0); MONOCYTES % (AUTO) 10.5 % (2.0-9.0); NEUTROPHILS # (AUTO) 4.6 K/uL (1.8-7.7); NEUTROPHILS % (AUTO) 65.7 % (40.0-70.0); PLATELET COUNT (AUTO) 163 K/uL (150-450); RED BLOOD CELL COUNT(AUTO) 4.15 MIL/uL (4.50-5.90); RED CELL DISTRIBUTION WIDTH 14.5 % (11.5-14.5)
[2018-08-25 17:07] LABS: ANION GAP 9 mmol/L (8-16); CALCIUM, TOTAL 8.9 mg/dL (8.8-10.5); CARBON DIOXIDE 27 mmol/L (22-29); CHLORIDE 105 mmol/L (98-107); GLUCOSE,RANDOM 122 mg/dL (70-110); SODIUM SERUM 141 mmol/L (136-145); UREA NITROGEN, BLOOD 11 mg/dL (7-18)
[2018-08-25 17:12] LABS: GLOMERULAR FILTR. RATE CALC > 60 mL/min (>60)
[2018-08-25 17:13] LABS: ALANINE AMINOTRANSFERASE 18 U/L (12-78); ALBUMIN 3.3 g/dL (3.4-5.0); ALKALINE PHOSPHATASE 76 U/L (46-116); ASPARTATE AMINOTRANSFERASE 16 U/L (15-37); BILIRUBIN,TOTAL 0.6 mg/dL (0.1-1.0); TOTAL PROTEIN, SERUM 6.6 g/dL (6.4-8.2)
[2018-08-25] MEDS ORDERED: DEXTROSE 5%-0.45% SODIUM CHL 1,000 ML IV ONE (17:15)
[2018-08-25] MEDS: MetFORMIN HCL 850 MG TABLET PO SCH (17:56)
[2018-08-25] MEDS ORDERED: ATORVASTATIN CALCIUM 20 MG TABLET PO SCH (21:00)
[2018-08-26 04:50] VITALS: BP 150/69
[2018-08-26 06:37] LABS: BASOPHILS % (AUTO) 0.8 % (0.0-2.0); EOSINOPHILS % (AUTO) 6.6 % (1.0-6.0); HEMATOCRIT 33.5 % (41-53); HEMOGLOBIN 11.1 g/dL (13.5-17.5); LYMPHOCYTES # (AUTO) 1.4 K/uL (1.0-4.8); LYMPHOCYTES % (AUTO) 22.3 % (22.0-44.0); MEAN CORPUSCULAR HEMOGLOBIN 29.2 pg (26.0-34.0); MEAN CORPUSCULAR HGB CONC 33.1 G/dL (31.0-37.0); MEAN CORPUSCULAR VOLUME 88 fL (80-100); MONOCYTES # (AUTO) 0.7 K/uL (0.1-1.0); MONOCYTES % (AUTO) 12.1 % (2.0-9.0); NEUTROPHILS # (AUTO) 3.6 K/uL (1.8-7.7); NEUTROPHILS % (AUTO) 58.2 % (40.0-70.0); PLATELET COUNT (AUTO) 152 K/uL (150-450); RED BLOOD CELL COUNT(AUTO) 3.79 MIL/uL (4.50-5.90); RED CELL DISTRIBUTION WIDTH 14.6 % (11.5-14.5)
[2018-08-26 06:44] LABS: HEMOGLOBIN A1C 6.1 % (4.5-6.2)
[2018-08-26 07:24] LABS: ALANINE AMINOTRANSFERASE 19 U/L (12-78); ALBUMIN 2.9 g/dL (3.4-5.0); ALKALINE PHOSPHATASE 62 U/L (46-116); ANION GAP 7 mmol/L (8-16); ASPARTATE AMINOTRANSFERASE 15 U/L (15-37); BILIRUBIN,TOTAL 0.6 mg/dL (0.1-1.0); CALCIUM, TOTAL 8.6 mg/dL (8.8-10.5); CARBON DIOXIDE 27 mmol/L (22-29); CHLORIDE 107 mmol/L (98-107); CHOL/HDL RATIO 1.8 (4.2-7.3); CHOLESTEROL 100 mg/dL (131-200); CREATININE 0.83 mg/dL (0.60-1.30); GLUCOSE,RANDOM 90 mg/dL (70-110); HDL CHOLESTEROL 57 mg/dL (40-60); LDL CHOL (CALC.) 34 mg/dL (0-130); POTASSIUM 3.6 mmol/L (3.5-5.1); SODIUM SERUM 141 mmol/L (136-145); THYROID STIMULATING HORMONE 3.07 uIU/mL (0.36-3.74); TOTAL PROTEIN, SERUM 5.7 g/dL (6.4-8.2); TRIGLYCERIDES 46 mg/dL (15-150); UREA NITROGEN, BLOOD 9 mg/dL (7-18)
[2018-08-26 07:26] LABS: GLOMERULAR FILTR. RATE CALC > 60 mL/min (>60)
[2018-08-26 07:32] VITALS: BP 146/67
[2018-08-26] MEDS: DORZOLAMIDE/TIMOLOL 2-0.5% [22.3-6.8MG/ML] 10 ML OPHTHALMIC SOLUTION OU SCH (08:16)
[2018-08-26] MEDS: PANTOPRAZOLE SODIUM 40 MG/VIAL IVP SCH (08:16)
[2018-08-26] MEDS: MetFORMIN HCL 850 MG TABLET PO SCH (08:16)
[2018-08-26] MEDS: FLUTICASONE/VILANTEROL 100-25 MCG/INH INHALER [14] IH SCH (08:16)
[2018-08-26] MEDS: RAMIPRIL 5 MG CAPSULE PO SCH (08:17)
[2018-08-26] MEDS: BRIMONIDINE TARTRATE 0.1% 5 ML OPHTHALMIC SOLUTION OU SCH (08:17)
[2018-08-26] MEDS: FINASTERIDE 5 MG TABLET PO SCH (08:17)
[2018-08-26] MEDS: ATORVASTATIN CALCIUM 20 MG TABLET PO SCH (08:17)
[2018-08-26] MEDS: DOCUSATE SODIUM 250 MG CAPSULE PO SCH (08:18)
[2018-08-26 12:00] VITALS: BP 142/62
[2018-08-26] MEDS ORDERED: ASPI-556 PO ×2 (12:46→12:47)
== END 2018-08-26 13:50 | disposition home health service (06) | DRG 378 ==
LOC: EMS 13:50 → 5S 21:30
PROVIDERS: ADMIT Internal Medicine; ATTEND Internal Medicine
PROC: 0DJ08ZZ Inspection of Upper Intestinal Tract, Via Natural or Artificial Opening Endoscopic (ICD-10-PCS; principal; 2018-08-24 14:00)
DX: K29.41 Chronic atrophic gastritis with bleeding (principal); I69.354 Hemiplegia and hemiparesis following cerebral infarction affecting left non-dominant side; E11.9 Type 2 diabetes mellitus without complications; E78.5 Hyperlipidemia, unspecified; I10 Essential (primary) hypertension; K31.4 Gastric diverticulum; E78.00 Pure hypercholesterolemia, unspecified; H40.9 Unspecified glaucoma; J44.9 Chronic obstructive pulmonary disease, unspecified; K40.90 Unilateral inguinal hernia, without obstruction or gangrene, not specified as recurrent; D64.9 Anemia, unspecified; K59.00 Constipation, unspecified; N40.1 Benign prostatic hyperplasia with lower urinary tract symptoms; R33.8 Other retention of urine; M19.90 Unspecified osteoarthritis, unspecified site; Z83.3 Family history of diabetes mellitus; Z79.82 Long term (current) use of aspirin; Z79.899 Other long term (current) drug therapy
CPT/HCPCS: 74018; 74177; 82271; 83036; 83540; 83550; 83735; 84443; 86850; 86900; 86901; 93005; 96374; C9113; G0378; J2916; J7030; J7042; J7050

== ENCOUNTER → 2019-04-10 | Outpatient (CLI) | payer MEDICARE, OTHER ==
[~2019-04-10] MED LIST changes: +ASPI-556 PO; -ASPI-891 PO
== END | disposition home or self-care (01) ==
LOC: RADPV 14:10
PROVIDERS: ATTEND Physician Assistant Medical
DX: M19.042 Primary osteoarthritis, left hand (principal); M19.041 Primary osteoarthritis, right hand; I70.0 Atherosclerosis of aorta; M85.842 Other specified disorders of bone density and structure, left hand; M19.031 Primary osteoarthritis, right wrist; M19.072 Primary osteoarthritis, left ankle and foot; M19.071 Primary osteoarthritis, right ankle and foot; M17.0 Bilateral primary osteoarthritis of knee; M79.89 Other specified soft tissue disorders; M19.021 Primary osteoarthritis, right elbow